=== PATIENT | female | born 1975 | race Two or more races ===

== ENCOUNTER 2021-01-12 06:10 | Emergency (ER) | payer SELFPAY ==
--- NOTE | 2021-01-12 06:35 | EDM.PDOC ---
ED HPI GENERAL MEDICAL PROBLEM - General Chief Complaint: General Stated Complaint: back pain Time Seen by Provider: 01/12/21 06:34 Source of Information: Reports: Patient, Family, Retail Team Member History Limitations: Reports: Language Barrier - History of Present Illness INITIAL COMMENTS - FREE TEXT/NARRATIVE: Jie, 45-year-old female, presents per pedis to the emergency department accompanied by her daughter who is also acting as sand plant attendant. Gives detail of 2+ weeks, Possibly up to 1 month of general malaise worsening with described as burning feet likely neuropathy from her poorly controlled diabetes. Daughter acknowledges diabetes is poorly controlled it is been at least 2 months since her last medical visit for checkup and/or renewal of prescriptions for her insulin therapy. Does not have glucose monitor but is using Lantus at night and NovoLog during the day with meals. Has received first dose moderna COVID-19 vaccine. back pain shoulder motion discomfort of the chest wall has been ongoing with increased severity over the past week in our translation. This seems to change with positioning. Denies shortness of breath, but pain does limit her inspiration. Bowel movements have been typical but has had increased urination and frequency not specifically speaking of any dysuria. Has issues with right wrist of chronicity has had a fracture and now is wearing the same splint/brace as it seems that it will flareup secondary of her work at [employer]. Onset: Unknown/Unsure Duration: Week(s):, Chronic, Getting Worse Location: Reports: Generalized Quality: Reports: Burning Severity: Moderate Improves with: Reports: None Worsens with: Reports: Movement Context: Reports: Sick Contact, Other Associated Symptoms: Reports: Malaise, Other ( Pain) Treatments SUPPORT ASSISTANT: Reports: Home Treatments, NSAIDS Feet Pain Score (Numeric/FACES): 9 Back Pain Score (Numeric/FACES): 9 - Related Data Allergies Allergy/AdvReac Type Severity Reaction Status Date / Time ampicillin Allergy Cannot Verified 01/12/21 08:28 Remember azithromycin [From Zithromax] Allergy Other Verified 01/12/21 06:28 Penicillins Allergy Other Verified 01/12/21 06:28 Home Meds: Home Meds Copper Gluconate [Copper] 2 mg PO DAILY 01/12/21 [History] Ibuprofen 200 mg PO Q6H PRN 01/12/21 [History] Insulin Glarg,Human.Rec.Analog [Lantus] 40 units SUBCUT BEDTIME 01/12/21 [History] Insulin Lispro [HumaLOG] 50 unit SUBCUT DAILY 01/12/21 [History] Magnesium 200 mg PO BID 01/12/21 [History] Naproxen Sodium [Aleve] 220 mg PO TID PRN 01/12/21 [History] Pregabalin [Lyrica] 50 mg PO TID 7 Days #21 cap 01/12/21 [Rx] Pregabalin [Lyrica] 100 mg PO TID 7 Days #21 cap 01/12/21 [Rx] lisinopriL [Lisinopril] 10 mg PO DAILY 01/12/21 [History] metFORMIN HCl [Metformin HCl ER] 500 mg PO DAILY 01/12/21 [History] Past Medical History HEENT History: Reports: Impaired Vision Cardiovascular History: Reports: None Respiratory History: Reports: None HEADER BOSS History: Reports: Musculoskeletal History: Reports: Arthritis, Osteoarthritis, Other (See Below) ( degenerative right knee) Neurological History: Reports: Neuropathy, Diabetic, Neuropathy, Peripheral Psychiatric History: Reports: None Endocrine/Metabolic History: Reports: Diabetes, Type II - Past Imaging History Past Imaging History: Reports: Xray Social & Family History - Family History Family Medical History: No Pertinent Family History ED ROS GENERAL - Review of Systems Review Of Systems: Comprehensive ROS is negative, except as noted in HPI. ED EXAM, GENERAL - Physical Exam Exam: See Below Free Text/Narrative:: Alert, oriented, in somewhat painful distress. HEENT is negative discharge or deformity with pink moist mucous membranes. PERRLA no icterus no injection is appreciated. Neck is soft supple no rigidity no lymphadenopathy normal limits to her motion. Thorax is somewhat diminished I would appreciate restriction secondary of her discomfort to the right posterior thorax and scapular region. I do not hear wheezes nor crackles. Cardiac is regular somewhat distant I do not appreciate murmur. Tenderness to the posterior thoracic and rib margin predominantly right side, increasing with palpation as well as motion of the right upper extremity. There is no flank pain to percussion. Abdomen is soft no point tenderness with bowel sounds present. There is no tenderness in the SI joints the hips nor pelvis. Right knee has chronic issues of which they state will need a total replacement in the future. She complains of burning to her feet with decreased sensation to touch from the ankles and distal. Socks are removed with somewhat dry skin to the soles of the feet with no lesions. Skin is warm and dry. Nails are painted gold with capillary refill for the skin being 3 seconds. #1 Interpretation EKG Date: 01/12/21 Time: 07:39 Rhythm: NSR Rate (Beats/Min): 77 [place]: Normal P-Wave: Present QRS: Normal ST-T: Normal QT: Normal Comparison: NA - No Prior EKG Course - Vital Signs Last Recorded V/S: Last Vital Signs Temp 97 F 01/12/21 06:21 Pulse 87 01/12/21 06:21 Resp 16 01/12/21 06:21 BP 111/80 01/12/21 06:21 Pulse Ox 98 01/12/21 06:21 - Orders/Labs/Meds Orders: Active Orders 24 hr Category Date Time Status Peripheral IV Care [RC] . DIRECTED Care 01/12/21 06:45 Active CULTURE BLOOD [BC] Stat Lab 01/12/21 06:45 Ordered CULTURE BLOOD [BC] Stat Lab 01/12/21 06:45 Ordered UA RFX RAHEEL AND CULT IF INDIC [URIN] Stat Lab 01/12/21 06:45 Results Sodium Chloride 0.9% [Normal Saline] 1,000 ml Med 01/12/21 07:00 Active IV ASDIRECTED Sodium Chloride 0.9% [Saline Flush] Med 01/12/21 06:45 Active 10 ml FLUSH Q8HR PRN Blood Culture x2 Reflex Set [OM.PC] Stat Oth 01/12/21 06:44 Ordered Peripheral IV Insertion Adult [OM.PC] Stat Oth 01/12/21 06:44 Ordered EKG 12 Lead [EK] Stat Ther 01/12/21 06:44 Ordered Medication Orders Sodium Chloride (Normal Saline) 1,000 mls @ 150 mls/hr IV ASDIRECTED WAQAS Last Admin: 01/12/21 07:27 Dose: 150 mls/hr Documented by: GABRIEL Sodium Chloride (Sodium Chloride 0.9% 10 Ml Syringe) 10 ml FLUSH Q8HR PRN PRN Reason: keep vein open Labs: Laboratory Tests 01/12/21 01/12/21 01/12/21 Range/Units 06:31 06:45 07:00 WBC 5.47 (5.00-10.00) 10^3/uL RBC 5.05 (3.80-5.50) 10^6/uL Hgb 14.3 (12.0-16.0) g/dL Hct 43.3 (37.0-47.0) % MCV 85.7 (82.0-92.0) fL MCH 28.3 (27.0-31.0) pg MCHC 33.0 (32.0-36.0) g/dL RDW 12.5 (11.5-14.5) % Plt Count 206 (150-400) 10^3/uL MPV 11.5 H (7.4-10.4) fL Immature Gran % (Auto) 1.3 (0.0-5.0) % Neut % (Auto) 49.1 L (50.0-70.0) % Lymph % (Auto) 39.1 (20.0-40.0) % [place] % (Auto) 6.2 (2.0-8.0) % Eos % (Auto) 3.8 H (1.0-3.0) % Baso % (Auto) 0.5 (0.0-1.0) % Neut # (Auto) 2.68 (2.50-7.00) 10^3/uL Lymph # (Auto) 2.14 (1.00-4.00) 10^3/uL [place] # (Auto) 0.34 (0.10-0.80) 10^3/uL Eos # (Auto) 0.21 (0.10-0.30) 10^3/uL Baso # (Auto) 0.03 (0.00-0.10) 10^3/uL Immature Gran # (Auto) 0.07 (0.00-0.50) 10^3/uL Sodium (136-145) mmol/L Potassium (3.5-5.1) mmol/L Chloride (98-107) mmol/L Carbon Dioxide (21.0-32.0) mmol/L Anion Gap (5-15) mmol/L BUN (7-18) mg/dL Creatinine (0.51-1.17) mg/dL Est Cr Clr Drug Dosing mL/min Estimated GFR (MDRD) mL/min Glucose (70-140) mg/dL POC Glucose 313 H (70-140) mg/dL Lactic Acid (0.4-2.0) mmol/L Calcium (8.7-10.3) mg/dL Total Bilirubin (0.2-1.0) mg/dL AST (15-37) U/L ALT (14-63) U/L Alkaline Phosphatase (46-116) U/L Troponin I High Sens (0-51.000) pg/mL Total Protein (6.4-8.2) g/dL Albumin (3.40-5.00) g/dL Urine Color Yellow (YELLOW) Urine Appearance Clear (CLEAR) Urine pH 5.5 (5.0-9.0) Ur Specific Bath 1.025 (1.005-1.030) Urine Protein Negative (NEGATIVE) mg/dL Urine Glucose (UA) 500 H (NEGATIVE) mg/dL Urine Ketones Negative (NEGATIVE) mg/dL Urine Occult Blood Negative (NEGATIVE) Urine Nitrite Negative (NEGATIVE) Urine Bilirubin Negative (NEGATIVE) Urine Urobilinogen 0.2 (0.2-1.0) E.U./dL Ur Leukocyte Esterase Negative (NEGATIVE) Influenza Type A RNA (NEGATIVE) Influenza Type B RNA (NEGATIVE) SARS-CoV-2 RNA (JAY) (NEGATIVE) 01/12/21 01/12/21 01/12/21 Range/Units 07:00 07:00 07:30 WBC (5.00-10.00) 10^3/uL RBC (3.80-5.50) 10^6/uL Hgb (12.0-16.0) g/dL Hct (37.0-47.0) % MCV (82.0-92.0) fL MCH (27.0-31.0) pg MCHC (32.0-36.0) g/dL RDW (11.5-14.5) % Plt Count (150-400) 10^3/uL MPV (7.4-10.4) fL Immature Gran % (Auto) (0.0-5.0) % Neut % (Auto) (50.0-70.0) % Lymph % (Auto) (20.0-40.0) % [place] % (Auto) (2.0-8.0) % Eos % (Auto) (1.0-3.0) % Baso % (Auto) (0.0-1.0) % Neut # (Auto) (2.50-7.00) 10^3/uL Lymph # (Auto) (1.00-4.00) 10^3/uL [place] # (Auto) (0.10-0.80) 10^3/uL Eos # (Auto) (0.10-0.30) 10^3/uL Baso # (Auto) (0.00-0.10) 10^3/uL Immature Gran # (Auto) (0.00-0.50) 10^3/uL Sodium 139 (136-145) mmol/L Potassium 4.2 (3.5-5.1) mmol/L Chloride 101 (98-107) mmol/L Carbon Dioxide 25.3 (21.0-32.0) mmol/L Anion Gap 16.9 H (5-15) mmol/L BUN 12 (7-18) mg/dL Creatinine 0.47 L (0.51-1.17) mg/dL Est Cr Clr Drug Dosing 130.53 mL/min Estimated GFR (MDRD) > 60 mL/min Glucose 323 H (70-140) mg/dL POC Glucose (70-140) mg/dL Lactic Acid 1.4 (0.4-2.0) mmol/L Calcium 8.4 L (8.7-10.3) mg/dL Total Bilirubin 0.7 (0.2-1.0) mg/dL AST 17 (15-37) U/L ALT 27 (14-63) U/L Alkaline Phosphatase 114 (46-116) U/L Troponin I High Sens < 4.000 (0-51.000) pg/mL Total Protein 6.7 (6.4-8.2) g/dL Albumin 3.16 L (3.40-5.00) g/dL Urine Color (YELLOW) Urine Appearance (CLEAR) Urine pH (5.0-9.0) Ur Specific Bath (1.005-1.030) Urine Protein (NEGATIVE) mg/dL Urine Glucose (UA) (NEGATIVE) mg/dL Urine Ketones (NEGATIVE) mg/dL Urine Occult Blood (NEGATIVE) Urine Nitrite (NEGATIVE) Urine Bilirubin (NEGATIVE) Urine Urobilinogen (0.2-1.0) E.U./dL Ur Leukocyte Esterase (NEGATIVE) Influenza Type A RNA Negative (NEGATIVE) Influenza Type B RNA Negative (NEGATIVE) SARS-CoV-2 RNA (JAY) Negative (NEGATIVE) Meds: Medications Generic Name Dose Route Start Last Admin Trade Name Crow PRN Reason Stop Dose Admin Sodium Chloride 1,000 mls @ 150 mls/hr 01/12/21 07:00 01/12/21 07:27 Normal Saline IV 150 mls/hr ASDIRECTED WAQAS Administration Sodium Chloride 10 ml 01/12/21 06:45 Sodium Chloride 0.9% 10 Ml Syringe FLUSH Q8HR PRN keep vein open Discontinued Medications Generic Name Dose Route Start Last Admin Trade Name Frejero PRN Reason Stop Dose Admin Sodium Chloride Confirm 01/12/21 07:07 01/12/21 07:27 Normal Saline Administered 01/12/21 07:08 Not Given Dose 1,000 mls @ as directed .ROUTE .STK-MED ONE Departure - Departure Time of Disposition: 08:55 Disposition: Home, Self-Care 01 Condition: Good Clinical Impression: Neuropathy, Insulin dependent diabetes mellitus with complications, Glucosuria, COVID-19 ruled out by laboratory testing, Influenza A virus not detected, Influenza B virus not detected Back pain Qualifiers: Back pain location: thoracic back pain Chronicity: chronic Back pain laterality: right Qualified Code(s): M54.6 - Pain in thoracic spine - Discharge Information *PRESCRIPTION DRUG MONITORING PROGRAM REVIEWED*: Not Applicable *COPY OF PRESCRIPTION DRUG MONITORING REPORT IN PATIENT ENE: Not Applicable Prescriptions: Pregabalin [Lyrica] 50 mg PO TID 7 Days #21 cap Pregabalin [Lyrica] 100 mg PO TID 7 Days #21 cap Instructions: Insulin Treatment for Diabetes Mellitus, Diabetes Mellitus and Foot Care, Peripheral Neuropathy, Blood Glucose Monitoring, Adult Forms: ED Department Discharge Additional Instructions: The only significant findings on your lab work today is elevated blood sugar as well as sugar in your urine. You need to maintain better control of your diabetes with blood glucose testing 4 times a day and adjusting your Humalog to keep your blood sugar closer to a 150 range. We will start pregabalin for your neuropathy but that will take time to show improvement of the burning sensation to your feet. We will start with 50 mg 3 times daily and you will need to be seen in the clinic for dosing adjustment in 1 week. Glucose monitor has been ordered with all testing supplies for 4 times a day testing You will need to establish with a clinic for your cares as you need stricter management of your diabetes to avoid further health complications. [facility] clinic is on the [address] in the [place] side of [facility], [facility] clinic is here at the West end of the hospital by the big parking lot. Make sure to establish an appointment for recheck next week. Sepsis Event Note (ED) - Evaluation Sepsis Screening Result: No Definite Risk - Focused Exam Vital Signs: Vital Signs Temp Pulse Resp BP Pulse Ox 01/12/21 06:21 97 F 87 16 111/80 98 - Problem List & Annotations (1) Insulin dependent diabetes mellitus with complications SNOMED Code(s): 14925229, 14621266 Code(s): DWW5138 - Status: Acute Priority: High (2) Back pain SNOMED Code(s): 734254965 Code(s): M54.9 - DORSALGIA, UNSPECIFIED Status: Acute Priority: High Qualifiers: Back pain location: thoracic back pain Chronicity: chronic Back pain laterality: right Qualified Code(s): M54.6 - Pain in thoracic spine; G89.29 - Other chronic pain (3) Neuropathy SNOMED Code(s): 389052677 Code(s): G62.9 - POLYNEUROPATHY, UNSPECIFIED Status: Acute Priority: Medium (4) Glucosuria SNOMED Code(s): 71902188 Code(s): R81 - GLYCOSURIA Status: Acute (5) COVID-19 ruled out by laboratory testing SNOMED Code(s): 226289482516707778, 560026476929176990 Code(s): Z20.822 - CONTACT WITH AND (SUSPECTED) EXPOSURE TO COVID-19 Status: Acute Priority: High (6) Influenza B virus not detected SNOMED Code(s): 174545430 Code(s): LXB0707 - Status: Acute Priority: High (7) Influenza A virus not detected SNOMED Code(s): 637093927 Code(s): R89.4 - ABNORMAL IMMUNOLOG FINDINGS IN SPECIMENS FROM OTH ORG/TISS Status: Acute Priority: High - Problem List Review Problem List Initiated/Reviewed/Updated: Yes - My Orders Last 24 Hours: My Active Orders 01/12/21 06:44 Blood Culture x2 Reflex Set [OM.PC] Stat Peripheral IV Insertion Adult [OM.PC] Stat EKG 12 Lead [EK] Stat 01/12/21 06:45 Peripheral IV Care [RC] . DIRECTED CULTURE BLOOD [BC] Stat CULTURE BLOOD [BC] Stat UA RFX RAHEEL AND CULT IF INDIC [URIN] Stat Sodium Chloride 0.9% [Saline Flush] 10 ml FLUSH Q8HR PRN 01/12/21 07:00 Sodium Chloride 0.9% [Normal Saline] 1,000 ml IV ASDIRECTED - Assessment/Plan Last 24 Hours: My Active Orders 01/12/21 06:44 Blood Culture x2 Reflex Set [OM.PC] Stat Peripheral IV Insertion Adult [OM.PC] Stat EKG 12 Lead [EK] Stat 01/12/21 06:45 Peripheral IV Care [RC] . DIRECTED CULTURE BLOOD [BC] Stat CULTURE BLOOD [BC] Stat UA RFX RAHEEL AND CULT IF INDIC [URIN] Stat Sodium Chloride 0.9% [Saline Flush] 10 ml FLUSH Q8HR PRN 01/12/21 07:00 Sodium Chloride 0.9% [Normal Saline] 1,000 ml IV ASDIRECTED Plan: The only significant findings on your lab work today is elevated blood sugar as well as sugar in your urine. You need to maintain better control of your diabetes with blood glucose testing 4 times a day and adjusting your Humalog to keep your blood sugar closer to a 150 range. We will start pregabalin for your neuropathy but that will take time to show improvement of the burning sensation to your feet. We will start with 50 mg 3 times daily and you will need to be seen in the clinic for dosing adjustment in 1 week. Glucose monitor has been ordered with all testing supplies for 4 times a day testing. You will need to establish with a clinic for your cares as you need stricter management of your diabetes to avoid further health complications. [facility] clinic is on the [address] [place] [address] in the [place] side of [facility], [facility] clinic is here at the West end of the hospital by the big parking lot. Make sure to establish an appointment for recheck next week.
[2021-01-12] MEDS ORDERED: Sodium Chloride 0.9% 10 ML Syringe FLUSH PRN (06:45)
[2021-01-12] MEDS ORDERED: Sodium Chloride 0.9% 1,000 ML IV SCH (07:00)
[2021-01-12] MEDS ORDERED: Sodium Chloride 0.9% 1,000 ML ONE (07:07)
[2021-01-12 07:46] LABS: ANION GAP 16.9 mmol/L (5-15); CHLORIDE,CL 101 mmol/L (98-107); SODIUM,NA 139 mmol/L (136-145)
--- NOTE | 2021-01-12 08:09 | CR ---
[id number] RAD/RAD Chest PA And Lateral EXAM: RAD Chest PA And Lateral INDICATION: POOR CONTROL DM WITH BACK/CHEST PAIN, NEUROPATHY, COMPARISON: April 17, 2012. DISCUSSION: Lungs are mildly hypoinflated with basilar atelectasis. Borderline heart size without evidence of edema. No effusions. IMPRESSION: 1. Low lung volumes. Danilo Marin MD 01/12/21 0809 Thank you for allowing us to participate in the care of your patient.
[2021-01-12 08:13] LABS: CORONAVIRUS COVID-19 NAA NEGATIVE (NEGATIVE)
== END 2021-01-12 09:30 | disposition home or self-care (01) ==
LOC: KA.ED 06:10
DX: G89.29 Other chronic pain (principal); M54.6 Pain in thoracic spine; E11.42 Type 2 diabetes mellitus with diabetic polyneuropathy; R81 Glycosuria; M19.90 Unspecified osteoarthritis, unspecified site; Z88.0 Allergy status to penicillin; Z88.1 Allergy status to other antibiotic agents; Z79.4 Long term (current) use of insulin; Z79.899 Other long term (current) drug therapy; Z20.822 Contact with and (suspected) exposure to COVID-19
CPT/HCPCS: 0240U; 36415; 71046; 80053; 81003; 82947; 83605; 84484; 85025; 99284-25; J7030

== ENCOUNTER 2021-02-24 16:00 | Observation (INO) | payer MEDICAID ==
[2021-02-24] MEDS ORDERED: Sodium Chloride 0.9% 10 ML Syringe FLUSH PRN (16:25)
[2021-02-24] MEDS ORDERED: Aspirin 81 MG Tab.Chew ONE (16:36)
[2021-02-24] MEDS ORDERED: Aspirin 81 MG Tab.Chew PO ONE (16:38)
[2021-02-24] MEDS ORDERED: Nitroglycerin 0.1 MG/HR Transdermal Patch TRDERM ONE (16:38)
[2021-02-24] MEDS ORDERED: Nitroglycerin 2% Oint 1 GM UD Packet ONE (16:39)
[2021-02-24 16:50] LABS: ANION GAP 15.6 mmol/L (5-15); CHLORIDE,CL 96 mmol/L (98-107); SODIUM,NA 133 mmol/L (136-145)
[2021-02-24] MEDS ORDERED: Sodium Chloride 0.9% 1,000 ML IV ONE (17:05)
[2021-02-24] MEDS ORDERED: Insulin Regular, Human 100 Units/ML 10 ML Vial SUBCUT ONE ×2 (17:15→19:28)
[2021-02-24] MEDS ORDERED: Ketorolac 30 MG/ML SDV IVPUSH ONE (17:20)
[2021-02-24] MEDS ORDERED: Alum Hydrox/Mag Hydrox/Simeth 30 ML, Lidocaine 2% 15 ML PO ONE ×4 (17:52→21:54)
[2021-02-24] MEDS ORDERED: Pantoprazole 40 MG Tab.CR PO ONE (18:05)
[2021-02-24] MEDS ORDERED: LORazepam 2 MG/ML SDV IVPUSH ONE (18:13)
[2021-02-24] MEDS ORDERED: Ondansetron 4 MG/2 ML SDV IVPUSH ONE (18:14)
[2021-02-24] MEDS ORDERED: Insulin Glargine,Hum.Rec.Anlog 100 UNIT/ML 3 ML Pen SUBCUT STA (18:20)
[2021-02-24] MEDS: Sodium Chloride 0.9% 1,000 ML IV SCH (18:40)
[2021-02-24] MEDS ORDERED: Albuterol 8 GM Inhaler INH PRN (20:21)
[2021-02-24] MEDS ORDERED: Non-Formulary Medication 1 Each (Insulin Aspart 100 UNIT/ML Pen) SUBCUT SCH (21:00)
[2021-02-24] MEDS ORDERED: atorvaSTATin 10 MG Tab PO SCH (21:00)
[2021-02-24] MEDS ORDERED: 50% Dextrose in Water 50 ML Syringe IVPUSH PRN (21:50)
[2021-02-24] MEDS ORDERED: Glucagon,Human Recombinant 1 MG Vial IM PRN (21:50)
[2021-02-24] MEDS: Formoterol/Mometasone 100-5 MCG 8.8 GM Inhaler IH SCH (22:00)
[2021-02-24] MEDS: Acetaminophen 325 MG Tab PO PRN (22:00)
[2021-02-25] MEDS: Sodium Chloride 0.9% 1,000 ML IV SCH ×3 (02:26→22:07)
[2021-02-25] MEDS: Acetaminophen 325 MG Tab PO PRN ×2 (06:29→20:33)
[2021-02-25] MEDS: Aluminum Hydroxide/Magnesium Hydroxide/Simethicone Susp 30 ML Cup PO PRN ×2 (06:40→20:33)
[2021-02-25 07:54] LABS: ANION GAP 12.7 mmol/L (5-15); CHLORIDE,CL 101 mmol/L (98-107); SODIUM,NA 134 mmol/L (136-145)
[2021-02-25] MEDS ORDERED: metFORMIN 500 MG Tab PO SCH (08:00)
[2021-02-25] MEDS: Formoterol/Mometasone 100-5 MCG 8.8 GM Inhaler IH SCH ×2 (08:24→20:27)
[2021-02-25] MEDS: Gemfibrozil 600 MG Tab PO SCH ×2 (08:56→18:04)
[2021-02-25] MEDS: Insulin Lispro 100 Unit/ML 3 ML KwikPen SUBCUT SCH ×3 (08:57→18:07)
[2021-02-25] MEDS ORDERED: Lisinopril 5 MG Tab PO SCH (09:00)
[2021-02-25] MEDS ORDERED: Ondansetron 4 MG/2 ML SDV IVPUSH PRN (09:30)
[2021-02-25] MEDS: Pantoprazole 40 MG Tab.CR PO SCH (09:41)
[2021-02-25] MEDS ORDERED: PROAIR INH PRN (13:14)
[2021-02-25] MEDS: JARDIANCE 25 MG PO SCH (14:34)
[2021-02-25] MEDS: ATORVASTATIN 20 MG PO SCH (20:28)
[2021-02-25] MEDS ORDERED: Insulin Glargine,Hum.Rec.Anlog 100 UNIT/ML 3 ML Pen SUBCUT SCH (21:00)
[2021-02-26] MEDS: Gemfibrozil 600 MG Tab PO SCH ×2 (05:55→06:33)
[2021-02-26] MEDS: Pantoprazole 40 MG Tab.CR PO SCH ×2 (05:55→06:33)
[2021-02-26] MEDS: Formoterol/Mometasone 100-5 MCG 8.8 GM Inhaler IH SCH (08:10)
[2021-02-26] MEDS: Insulin Lispro 100 Unit/ML 3 ML KwikPen SUBCUT SCH (08:10)
[2021-02-26] MEDS: JARDIANCE 25 MG PO SCH (08:12)
[2021-02-26] MEDS: ATORVASTATIN 20 MG PO SCH (08:12)
[2021-02-26] MEDS ORDERED: LISINOPRIL 5 MG PO SCH (09:00)
== END 2021-02-26 09:53 | disposition home or self-care (01) ==
LOC: KA.ED 16:00 → KA.MS 17:21 → UNDOADMOB 17:35 → KA.MS 17:35
PROVIDERS: ADMIT Family Medicine; ATTEND Family Medicine
DX: R07.9 Chest pain, unspecified (principal); I10 Essential (primary) hypertension; E78.00 Pure hypercholesterolemia, unspecified; E11.42 Type 2 diabetes mellitus with diabetic polyneuropathy; J45.909 Unspecified asthma, uncomplicated; R10.9 Unspecified abdominal pain; Z98.890 Other specified postprocedural states; Z79.4 Long term (current) use of insulin; Z79.84 Long term (current) use of oral hypoglycemic drugs; Z79.899 Other long term (current) drug therapy; Z90.49 Acquired absence of other specified parts of digestive tract; Z20.822 Contact with and (suspected) exposure to COVID-19
CPT/HCPCS: 36415; 71046; 80048; 80053; 82947; 83690; 84484; 85025; 87635; 93005; 96374; 96375; 96376; 99285; A9270; G0378; J1815; J1885; J2060; J2405; J7030; 93010; 99284; U0002

== ENCOUNTER 2021-03-18 16:45 | Emergency (ER) | payer MEDICAID ==
[2021-03-18] MEDS: Sodium Chloride 0.9% 1,000 ML IV ONE (17:29)
[2021-03-18] MEDS: Sodium Chloride 0.9% 50 ML IV SCH (17:37)
[2021-03-18] MEDS: Iopamidol 755 Mg/ML 75 ML Bottle IVPUSH ONE (17:37)
[2021-03-18 17:50] LABS: CHLORIDE,CL 97 mmol/L (98-107); SODIUM,NA 133 mmol/L (136-145)
[2021-03-18] MEDS ORDERED: Lidocaine 2% Viscous Solution 15 ML UD ONE (18:11)
[2021-03-18] MEDS: Alum Hydrox/Mag Hydrox/Simeth 30 ML, Lidocaine 2% 15 ML PO ONE ×2 (18:15)
[2021-03-18] MEDS: HYDROmorphone 1 MG/ML Syringe IVPUSH ONE (18:16)
[2021-03-18] MEDS ORDERED: hydrOXYzine HCL 100 MG/2 ML SDV IM ONE (18:32)
== END 2021-03-18 19:54 | disposition home or self-care (01) ==
LOC: KA.ED 16:45
DX: R07.89 Other chest pain (principal); M47.812 Spondylosis without myelopathy or radiculopathy, cervical region; K21.9 Gastro-esophageal reflux disease without esophagitis; E78.00 Pure hypercholesterolemia, unspecified; I10 Essential (primary) hypertension; J45.909 Unspecified asthma, uncomplicated; E11.42 Type 2 diabetes mellitus with diabetic polyneuropathy; Z88.0 Allergy status to penicillin; Z88.1 Allergy status to other antibiotic agents; Z79.4 Long term (current) use of insulin; Z79.899 Other long term (current) drug therapy
CPT/HCPCS: 36415; 71260; 72040; 74177; 80053; 82150; 83690; 84484; 85025; 93005; 93010; 96374; 99284; 99285-25; A9270-GY; J1170; J7030; Q9967

== ENCOUNTER 2021-05-29 14:33 | Emergency (ER) | payer MEDICAID ==
[2021-05-29] MEDS ORDERED: Sodium Chloride 0.9% 10 ML Syringe FLUSH PRN (14:37)
[2021-05-29] MEDS ORDERED: Sodium Chloride 0.9% 1,000 ML IV ONE (14:38)
[2021-05-29] MEDS ORDERED: Aspirin 81 MG Tab.Chew PO ONE (14:43)
[2021-05-29] MEDS ORDERED: LORazepam 2 MG/ML SDV IVPUSH ONE (14:51)
[2021-05-29] MEDS ORDERED: Ondansetron 4 MG/2 ML SDV IVPUSH ONE (15:08)
[2021-05-29] MEDS ORDERED: Morphine 4 MG/ML Syringe IVPUSH ONE (15:08)
[2021-05-29 15:14] LABS: ANION GAP 12.6 mmol/L (5-15); CHLORIDE,CL 100 mmol/L (98-107); SODIUM,NA 133 mmol/L (136-145)
== END 2021-05-29 16:10 | disposition left against medical advice (07) ==
LOC: KA.ED 14:33 → UNDOADMOB 15:41 → KA.MS 15:41 → UNDODISOB 16:00
DX: R07.89 Other chest pain (principal); E78.00 Pure hypercholesterolemia, unspecified; I10 Essential (primary) hypertension; M19.90 Unspecified osteoarthritis, unspecified site; E11.42 Type 2 diabetes mellitus with diabetic polyneuropathy; Z88.0 Allergy status to penicillin; Z88.1 Allergy status to other antibiotic agents; Z79.4 Long term (current) use of insulin; Z79.899 Other long term (current) drug therapy; Z20.822 Contact with and (suspected) exposure to COVID-19
CPT/HCPCS: 36415; 71045; 80053; 82947; 83880; 84484; 85025; 85379; 96374; 96375; 99285-25; A9270-GY; J2060; J2270; J2405; J7030; U0002

== ENCOUNTER 2021-06-30 08:49 | Day surgery (SDC) | payer MEDICAID ==
[2021-06-30] MEDS ORDERED: Midazolam 1 MG/ML 2 ML SDV IV ONE (08:50)
[2021-06-30] MEDS ORDERED: Sodium Chloride 0.9% 10 ML Syringe FLUSH PRN (09:00)
[2021-06-30] MEDS ORDERED: Sodium Chloride 0.9% 1,000 ML IV SCH (09:00)
[2021-06-30] MEDS ORDERED: Glycopyrrolate 0.2 MG/ML SDV ONE (09:02)
[2021-06-30] MEDS ORDERED: Midazolam 1 MG/ML 2 ML SDV ONE ×2 (09:02→09:04)
[2021-06-30] MEDS ORDERED: Lidocaine 2% 20 ML MDV ONE (09:02)
[2021-06-30] MEDS ORDERED: Propofol 200 MG/20 ML SDV ONE (09:02)
== END 2021-06-30 12:25 | disposition home or self-care (01) ==
LOC: KA.SDS 08:49
PROVIDERS: ATTEND Family Medicine
DX: Z12.11 Encounter for screening for malignant neoplasm of colon (principal); K31.89 Other diseases of stomach and duodenum; K21.9 Gastro-esophageal reflux disease without esophagitis; K31.7 Polyp of stomach and duodenum; K29.70 Gastritis, unspecified, without bleeding; K31.819 Angiodysplasia of stomach and duodenum without bleeding; E11.65 Type 2 diabetes mellitus with hyperglycemia; I10 Essential (primary) hypertension; E78.2 Mixed hyperlipidemia; E55.9 Vitamin D deficiency, unspecified; E66.9 Obesity, unspecified; Z79.4 Long term (current) use of insulin; Z79.899 Other long term (current) drug therapy; Z88.0 Allergy status to penicillin; Z88.1 Allergy status to other antibiotic agents; Z68.31 Body mass index [BMI] 31.0-31.9, adult
CPT/HCPCS: 00813; 43239; 45378; 82947; J2250; J2704; J3490; J7030

== ENCOUNTER 2021-09-20 07:07 | Day surgery (SDC) | payer MEDICAID ==
[~2021-09-20 07:07] MED LIST: Sodium Chloride 0.9% 1,000 ML IV SCH; Sodium Chloride 0.9% 10 ML Syringe FLUSH PRN
== END 2021-09-20 08:00 | disposition home or self-care (01) ==
LOC: KA.SDS 07:07
PROVIDERS: ATTEND Family Medicine
DX: R19.5 Other fecal abnormalities (principal); Z53.09 Procedure and treatment not carried out because of other contraindication; E11.9 Type 2 diabetes mellitus without complications; Z59.41 Food insecurity; Z20.822 Contact with and (suspected) exposure to COVID-19; Z88.0 Allergy status to penicillin; Z88.1 Allergy status to other antibiotic agents; Z98.890 Other specified postprocedural states; Z79.899 Other long term (current) drug therapy
CPT/HCPCS: 82947; J7030

== ENCOUNTER 2021-12-05 06:36 | Emergency (ER) | payer MEDICAID ==
[2021-12-05] MEDS ORDERED: Ketorolac 30 MG/ML SDV IVPUSH ONE (07:25)
[2021-12-05] MEDS ORDERED: HYDROmorphone 1 MG/ML Syringe IVPUSH ONE (07:25)
[2021-12-05 08:37] LABS: ANION GAP 12.5 mmol/L (5-15); CHLORIDE,CL 98 mmol/L (98-107); ESTIMATED GFR 121 mL/min (>=60); SODIUM,NA 132 mmol/L (136-145)
[2021-12-05] MEDS ORDERED: Insulin Lispro 100 Unit/ML 3 ML KwikPen SUBCUT ONE (09:05)
[2021-12-05] MEDS ORDERED: Iopamidol 755 Mg/ML 75 ML Bottle IVPUSH ONE (09:47)
[2021-12-05] MEDS ORDERED: Sodium Chloride 0.9% 50 ML IV SCH (10:00)
[2021-12-05] MEDS ORDERED: traMADol 50 MG Tab PO ONE (10:43)
== END 2021-12-05 11:08 | disposition home or self-care (01) ==
LOC: KA.ED 06:36
DX: R07.89 Other chest pain (principal); E10.41 Type 1 diabetes mellitus with diabetic mononeuropathy; E10.65 Type 1 diabetes mellitus with hyperglycemia; E10.42 Type 1 diabetes mellitus with diabetic polyneuropathy; E78.00 Pure hypercholesterolemia, unspecified; I10 Essential (primary) hypertension; J45.909 Unspecified asthma, uncomplicated; M19.90 Unspecified osteoarthritis, unspecified site; Z88.1 Allergy status to other antibiotic agents; Z88.0 Allergy status to penicillin; Z79.899 Other long term (current) drug therapy
CPT/HCPCS: 36415; 71260; 74160; 80053; 82947; 83690; 84484; 85025; 86140; 96374; 96375; 99284; 99284-25; A9270-GY; J1170; J1815-GY; J1885; Q9967

== ENCOUNTER 2022-03-03 16:50 | Emergency (ER) | payer MEDICAID ==
[2022-03-03] MEDS: HYDROmorphone 1 MG/ML Syringe IVPUSH ONE (17:25)
[2022-03-03] MEDS: Sodium Chloride 0.9% 50 ML IV SCH (17:48)
[2022-03-03] MEDS: Iopamidol 755 Mg/ML 75 ML Bottle IVPUSH ONE (17:48)
[2022-03-03] MEDS: Ondansetron 4 MG/2 ML SDV ONE (17:53)
[2022-03-03] MEDS: Ondansetron 4 MG/2 ML SDV IVPUSH ONE (17:53)
[2022-03-03 17:55] LABS: ANION GAP 13.6 mmol/L (5-15)
== END 2022-03-03 18:40 | disposition home or self-care (01) ==
LOC: KA.ED 16:50
DX: E11.43 Type 2 diabetes mellitus with diabetic autonomic (poly)neuropathy (principal); K31.84 Gastroparesis; K31.89 Other diseases of stomach and duodenum; E80.7 Disorder of bilirubin metabolism, unspecified; R74.8 Abnormal levels of other serum enzymes; E78.00 Pure hypercholesterolemia, unspecified; I10 Essential (primary) hypertension; K21.9 Gastro-esophageal reflux disease without esophagitis; E11.9 Type 2 diabetes mellitus without complications; E66.9 Obesity, unspecified; Z68.34 Body mass index [BMI] 34.0-34.9, adult; Z88.0 Allergy status to penicillin; Z88.1 Allergy status to other antibiotic agents; Z79.4 Long term (current) use of insulin; Z79.899 Other long term (current) drug therapy
CPT/HCPCS: 36415; 71046; 74177; 80053; 81003; 82150; 83605; 83690; 85025; 87040; 96374; 96375; 99284; 99284-25; J1170; J2405; Q9967

== ENCOUNTER 2022-10-08 14:39 | Emergency (ER) | payer MEDICAID ==
[2022-10-08] MEDS ORDERED: Sodium Chloride 0.9% 1,000 ML IV ONE (15:07)
[2022-10-08] MEDS ORDERED: Iopamidol 755 Mg/ML 100 ML Bottle IV ONE (15:19)
[2022-10-08] MEDS ORDERED: LORazepam 2 MG/ML SDV IVPUSH ONE (15:26)
[2022-10-08] MEDS ORDERED: Ondansetron 4 MG/2 ML SDV IVPUSH ONE (15:26)
[2022-10-08 15:28] LABS: BASOPHILS ABSOLUTE AUTO 0.03 10^3/uL (0.00-0.10); BASOPHILS PERCENT AUTO 0.4 % (0.0-1.0); EOSINOPHILS ABSOLUTE AUTO 0.24 10^3/uL (0.10-0.30); EOSINOPHILS PERCENT AUTO 3.3 % (1.0-3.0); HEMATOCRIT 39.5 % (37.0-47.0); HEMOGLOBIN 13.6 g/dL (12.0-16.0); IMMATURE GRAN ABSOLUTE AUTO 0.03 10^3/uL (0.00-0.50); IMMATURE GRAN PERCENT AUTO 0.4 % (0.0-5.0); LYMPHOCYTES ABSOLUTE AUTO 1.88 10^3/uL (1.00-4.00); LYMPHOCYTES PERCENT AUTO 26.2 % (20.0-40.0); MEAN CORPUSCULAR HEMOGLOBIN 28.5 pg (27.0-31.0); MEAN CORPUSCULAR HGB CONC 34.4 g/dL (32.0-36.0); MEAN CORPUSCULAR VOLUME 82.8 fL (82.0-92.0); MONOCYTES ABSOLUTE AUTO 0.28 10^3/uL (0.10-0.80); MONOCYTES PERCENT AUTO 3.9 % (2.0-8.0); NEUTROPHILS ABSOLUTE AUTO 4.71 10^3/uL (2.50-7.00); NEUTROPHILS PERCENT AUTO 65.8 % (50.0-70.0); PLATELET COUNT,PLT 251 10^3/uL (150-400); RED BLOOD CELL COUNT 4.77 10^6/uL (3.80-5.50); RED CELL DISTRIBUTION WIDTH 12.9 % (11.5-14.5); WHITE BLOOD CELL COUNT,WBC 7.17 10^3/uL (5.00-10.00)
[2022-10-08] MEDS ORDERED: Sodium Chloride 0.9% 50 ML IV SCH (15:30)
[2022-10-08 15:44] LABS: ALANINE AMINOTRANSFERASE,ALT 39 U/L (14-63); ALBUMIN 3.48 g/dL (3.40-5.00); ALKALINE PHOSPHATASE 136 U/L (46-116); ANION GAP 14.4 mmol/L (5-15); ASPARTATE AMNIOTRANSFERASE,AST 17 U/L (15-37); BILIRUBIN TOTAL 1.2 mg/dL (0.2-1.0); BLOOD UREA NITROGEN,BUN 11 mg/dL (7-18); CALCIUM 8.8 mg/dL (8.7-10.3); CARBON DIOXIDE,CO2 26.5 mmol/L (21.0-32.0); CHLORIDE,CL 101 mmol/L (98-107); CREATININE 0.56 mg/dL (0.51-1.17); GLUCOSE RANDOM 344 mg/dL (70-140); LIPASE 38 U/L (73-393); POTASSIUM,K 3.9 mmol/L (3.5-5.1); PROTEIN TOTAL,TP 7.4 g/dL (6.4-8.2); SODIUM,NA 138 mmol/L (136-145)
[2022-10-08 15:45] LABS: ESTIMATED GFR 114 mL/min (>=60)
[2022-10-08] MEDS ORDERED: Metoclopramide 10 MG Tab PO ONE (16:59)
== END 2022-10-08 17:40 | disposition home or self-care (01) ==
LOC: KA.ED 14:39
DX: E13.43 Other specified diabetes mellitus with diabetic autonomic (poly)neuropathy (principal); K31.84 Gastroparesis; E13.65 Other specified diabetes mellitus with hyperglycemia; E78.00 Pure hypercholesterolemia, unspecified; I10 Essential (primary) hypertension; K21.9 Gastro-esophageal reflux disease without esophagitis; J45.909 Unspecified asthma, uncomplicated; E13.42 Other specified diabetes mellitus with diabetic polyneuropathy; E66.9 Obesity, unspecified; Z68.30 Body mass index [BMI] 30.0-30.9, adult; Z88.0 Allergy status to penicillin; Z88.1 Allergy status to other antibiotic agents; Z79.4 Long term (current) use of insulin; Z79.899 Other long term (current) drug therapy
CPT/HCPCS: 74177; 80053; 83690; 85025; 93010; 96361; 96374; 96375; 99284; A9270; J2060; J2405; J3490; J7030; Q9967

== ENCOUNTER 2023-06-07 17:45 | Emergency (ER) | payer MEDICAID ==
[2023-06-07] MEDS: LORazepam 0.5 MG Tab PO ONE (17:57)
[2023-06-07] MEDS ORDERED: Sodium Chloride 0.9% 10 ML Syringe FLUSH PRN (18:00)
[2023-06-07 18:20] LABS: BASOPHILS ABSOLUTE AUTO 0.04 10^3/uL (0.00-0.10); BASOPHILS PERCENT AUTO 0.5 % (0.0-1.0); EOSINOPHILS ABSOLUTE AUTO 0.12 10^3/uL (0.10-0.30); EOSINOPHILS PERCENT AUTO 1.5 % (1.0-3.0); HEMOGLOBIN 13.2 g/dL (12.0-16.0); IMMATURE GRAN ABSOLUTE AUTO 0.05 10^3/uL (0.00-0.50); IMMATURE GRAN PERCENT AUTO 0.6 % (0.0-5.0); LYMPHOCYTES ABSOLUTE AUTO 2.01 10^3/uL (1.00-4.00); LYMPHOCYTES PERCENT AUTO 25.7 % (20.0-40.0); MEAN CORPUSCULAR HEMOGLOBIN 28.7 pg (27.0-31.0); MEAN CORPUSCULAR HGB CONC 34.7 g/dL (32.0-36.0); MEAN CORPUSCULAR VOLUME 82.6 fL (82.0-92.0); MEAN PLATELET VOLUME 10.7 fL (7.4-10.4); MONOCYTES ABSOLUTE AUTO 0.47 10^3/uL (0.10-0.80); NEUTROPHILS ABSOLUTE AUTO 5.12 10^3/uL (2.50-7.00); NEUTROPHILS PERCENT AUTO 65.7 % (50.0-70.0); PLATELET COUNT,PLT 232 10^3/uL (150-400); RED CELL DISTRIBUTION WIDTH 12.8 % (11.5-14.5); WHITE BLOOD CELL COUNT,WBC 7.81 10^3/uL (5.00-10.00)
[2023-06-07 18:36] LABS: ALBUMIN 3.12 g/dL (3.40-5.00); ANION GAP 12.9 mmol/L (5-15); BILIRUBIN TOTAL 0.6 mg/dL (0.2-1.0); CALCIUM 8.7 mg/dL (8.7-10.3); CARBON DIOXIDE,CO2 27.7 mmol/L (21.0-32.0); CREATININE 0.54 mg/dL (0.51-1.17); EST CRCL DRUG DOSING (CG) 106.54 mL/min; POTASSIUM,K 3.6 mmol/L (3.5-5.1)
== END 2023-06-07 20:35 | disposition home or self-care (01) ==
LOC: KA.ED 17:45
DX: M79.602 Pain in left arm (principal); E11.65 Type 2 diabetes mellitus with hyperglycemia; F41.9 Anxiety disorder, unspecified; M54.2 Cervicalgia; R07.9 Chest pain, unspecified; I10 Essential (primary) hypertension; R74.8 Abnormal levels of other serum enzymes; J45.909 Unspecified asthma, uncomplicated; Z79.4 Long term (current) use of insulin; Z79.899 Other long term (current) drug therapy; Z79.51 Long term (current) use of inhaled steroids; Z88.0 Allergy status to penicillin; Z88.1 Allergy status to other antibiotic agents
CPT/HCPCS: 36415; 71045; 80053; 83880; 84484; 85025; 99285; A9270; 93010; 99284

== ENCOUNTER 2024-03-29 09:43 | Emergency (ER) | payer SELFPAY ==
[2024-03-29] MEDS ORDERED: Sodium Chloride 0.9% 10 ML Syringe FLUSH PRN (09:57)
[2024-03-29 10:18] LABS: BASOPHILS ABSOLUTE AUTO 0.02 10^3/uL (0.00-0.10); BASOPHILS PERCENT AUTO 0.3 % (0.0-1.0); EOSINOPHILS ABSOLUTE AUTO 0.17 10^3/uL (0.10-0.30); EOSINOPHILS PERCENT AUTO 2.7 % (1.0-3.0); HEMATOCRIT 41.9 % (37.0-47.0); HEMOGLOBIN 14.6 g/dL (12.0-16.0); IMMATURE GRAN ABSOLUTE AUTO 0.07 10^3/uL (0.00-0.04); IMMATURE GRAN PERCENT AUTO 1.1 % (0.0-0.4); LYMPHOCYTES ABSOLUTE AUTO 1.85 10^3/uL (1.00-4.00); LYMPHOCYTES PERCENT AUTO 29.1 % (20.0-40.0); MEAN CORPUSCULAR HEMOGLOBIN 28.2 pg (27.0-31.0); MEAN CORPUSCULAR HGB CONC 34.8 g/dL (32.0-36.0); MEAN PLATELET VOLUME 11.3 fL (7.4-10.4); MONOCYTES PERCENT AUTO 6.3 % (2.0-8.0); NEUTROPHILS ABSOLUTE AUTO 3.85 10^3/uL (2.50-7.00); NEUTROPHILS PERCENT AUTO 60.5 % (50.0-70.0); PLATELET COUNT,PLT 188 10^3/uL (150-400); RED BLOOD CELL COUNT 5.17 10^6/uL (3.80-5.50); WHITE BLOOD CELL COUNT,WBC 6.36 10^3/uL (5.00-10.00)
[2024-03-29 10:23] LABS: PH VENOUS,POC 7.47 pH (7.32-7.43)
[2024-03-29] MEDS: Sodium Chloride 0.9% 1,000 ML IV ONE (10:23)
[2024-03-29] MEDS: LORazepam 2 MG/ML SDV IVPUSH ONE (10:29)
[2024-03-29 10:30] LABS: ALANINE AMINOTRANSFERASE,ALT 29 U/L (14-63); ALBUMIN 3.39 g/dL (3.40-5.00); ALKALINE PHOSPHATASE 139 U/L (46-116); ANION GAP 16.7 mmol/L (5-15); ASPARTATE AMNIOTRANSFERASE,AST 10 U/L (15-37); BILIRUBIN TOTAL 1.1 mg/dL (0.2-1.0); BLOOD UREA NITROGEN,BUN 15 mg/dL (7-18); CALCIUM 9.4 mg/dL (8.7-10.3); CARBON DIOXIDE,CO2 25.7 mmol/L (21.0-32.0); CHLORIDE,CL 96 mmol/L (98-107); CREATININE 0.52 mg/dL (0.51-1.17); GLUCOSE RANDOM 392 mg/dL (70-140); POTASSIUM,K 4.4 mmol/L (3.5-5.1); PROTEIN TOTAL,TP 7.2 g/dL (6.4-8.2); SODIUM,NA 134 mmol/L (136-145)
[2024-03-29 10:31] LABS: ESTIMATED GFR 115 mL/min (>=60)
[2024-03-29] MEDS: Ketorolac 30 MG/ML SDV IVPUSH ONE (10:49)
[2024-03-29] MEDS ORDERED: 50% Dextrose in Water 50 ML Syringe IVPUSH PRN (11:19)
[2024-03-29] MEDS ORDERED: Glucagon,Human Recombinant 1 MG Vial IM PRN (11:19)
[2024-03-29] MEDS: Insulin Regular, Human 100 Units/ML 10 ML Vial SUBCUT ONE (11:32)
[2024-03-29 13:34] VITALS: BP 139/79; PULSE 77
== END 2024-03-29 12:05 | disposition home or self-care (01) ==
LOC: KA.ED 09:43
DX: E11.65 Type 2 diabetes mellitus with hyperglycemia (principal); R07.89 Other chest pain; M54.2 Cervicalgia; I10 Essential (primary) hypertension; E78.00 Pure hypercholesterolemia, unspecified; E11.9 Type 2 diabetes mellitus without complications; E11.40 Type 2 diabetes mellitus with diabetic neuropathy, unspecified; Z88.0 Allergy status to penicillin; Z88.1 Allergy status to other antibiotic agents; Z88.8 Allergy status to other drugs, medicaments and biological substances; Z79.899 Other long term (current) drug therapy; Z79.84 Long term (current) use of oral hypoglycemic drugs; Z79.4 Long term (current) use of insulin; Z90.49 Acquired absence of other specified parts of digestive tract; Z91.148 Patient's other noncompliance with medication regimen for other reason
CPT/HCPCS: 36415; 71045; 80053; 82803; 82947; 84484; 85025; 96361; 96374; 96375; 99285-25; A9270-GY; J1885; J2060; J7030

== ENCOUNTER 2024-06-10 17:20 | Emergency (ER) | payer MEDICAID ==
[2024-06-10] MEDS: Aspirin 81 MG Tab.Chew ONE (17:30)
[2024-06-10] MEDS: Nitroglycerin 0.4 MG Tab.SL ONE (17:31)
[2024-06-10] MEDS: Sodium Chloride 0.9% 1,000 ML IV ONE (17:40)
[2024-06-10] MEDS: Sodium Chloride 0.9% 1,000 ML ONE (17:41)
[2024-06-10 17:43] LABS: BASOPHILS ABSOLUTE AUTO 0.04 10^3/uL (0.00-0.10); BASOPHILS PERCENT AUTO 0.6 % (0.0-1.0); EOSINOPHILS ABSOLUTE AUTO 0.22 10^3/uL (0.10-0.30); EOSINOPHILS PERCENT AUTO 3.1 % (1.0-3.0); HEMOGLOBIN 14.2 g/dL (12.0-16.0); IMMATURE GRAN ABSOLUTE AUTO 0.05 10^3/uL (0.00-0.04); IMMATURE GRAN PERCENT AUTO 0.7 % (0.0-0.4); LYMPHOCYTES PERCENT AUTO 32.3 % (20.0-40.0); MEAN CORPUSCULAR HEMOGLOBIN 29.2 pg (27.0-31.0); MEAN CORPUSCULAR HGB CONC 34.6 g/dL (32.0-36.0); MEAN CORPUSCULAR VOLUME 84.4 fL (82.0-92.0); MEAN PLATELET VOLUME 10.8 fL (7.4-10.4); MONOCYTES ABSOLUTE AUTO 0.53 10^3/uL (0.10-0.80); MONOCYTES PERCENT AUTO 7.4 % (2.0-8.0); NEUTROPHILS ABSOLUTE AUTO 3.99 10^3/uL (2.50-7.00); NEUTROPHILS PERCENT AUTO 55.9 % (50.0-70.0); PLATELET COUNT,PLT 249 10^3/uL (150-400); RED BLOOD CELL COUNT 4.86 10^6/uL (3.80-5.50); RED CELL DISTRIBUTION WIDTH 12.9 % (11.5-14.5); WHITE BLOOD CELL COUNT,WBC 7.13 10^3/uL (5.00-10.00)
[2024-06-10 17:55] LABS: HEMOGLOBIN A1C 11.9 % (4.3-5.7)
[2024-06-10 18:01] LABS: ALANINE AMINOTRANSFERASE,ALT 40 U/L (14-63); ALBUMIN 3.23 g/dL (3.40-5.00); ALKALINE PHOSPHATASE 143 U/L (46-116); ANION GAP 11.2 mmol/L (5-15); ASPARTATE AMNIOTRANSFERASE,AST 19 U/L (15-37); BLOOD UREA NITROGEN,BUN 19 mg/dL (7-18); CALCIUM 9.3 mg/dL (8.7-10.3); CARBON DIOXIDE,CO2 27.6 mmol/L (21.0-32.0); CHLORIDE,CL 99 mmol/L (98-107); CREATININE 0.56 mg/dL (0.51-1.17); EST CRCL DRUG DOSING (CG) 88.25 mL/min; GLUCOSE RANDOM 368 mg/dL (70-140); POTASSIUM,K 3.8 mmol/L (3.5-5.1); PROTEIN TOTAL,TP 7.1 g/dL (6.4-8.2); SODIUM,NA 134 mmol/L (136-145)
[2024-06-10 18:02] LABS: ESTIMATED GFR 113 mL/min (>=60)
[2024-06-10 18:04] LABS: B-TYPE NATRIURETIC PEPTIDE,BNP 9 pg/mL (0-100)
[2024-06-10 18:32] LABS: APPEARANCE,URINE SLIGHTLY CLOUDY (CLEAR); BILIRUBIN,URINE NEGATIVE (NEGATIVE); COLOR,URINE YELLOW (YELLOW); GLUCOSE,URINE >=1000 mg/dL (NEGATIVE); KETONES,URINE TRACE mg/dL (NEGATIVE); LEUKOCYTE ESTERASE,URINE NEGATIVE (NEGATIVE); NITRITE,URINE NEGATIVE (NEGATIVE); OCCULT BLOOD,URINE TRACE-INTACT (NEGATIVE); PH,URINE 5.5 (5.0-9.0); PROTEIN,URINE 100 mg/dL (NEGATIVE); UROBILINOGEN,URINE 0.2 E.U./dL (0.2-1.0)
[2024-06-10 18:33] LABS: BACTERIA,URINE RARE /HPF (NONE TO FEW); EPITHELIAL CELLS,URINE FEW /LPF; RBC,URINE 0-5 /HPF (0-5)
[2024-06-10] MEDS: Morphine 2 MG/ML SYRINGE IVPUSH ONE (18:38)
== END 2024-06-10 19:14 | disposition home or self-care (01) ==
LOC: KA.ED 17:20
DX: M25.512 Pain in left shoulder (principal); E86.0 Dehydration; R00.0 Tachycardia, unspecified; Z91.148 Patient's other noncompliance with medication regimen for other reason; E11.65 Type 2 diabetes mellitus with hyperglycemia; I10 Essential (primary) hypertension; E78.00 Pure hypercholesterolemia, unspecified; Z88.0 Allergy status to penicillin; Z88.1 Allergy status to other antibiotic agents; Z79.899 Other long term (current) drug therapy; Z79.84 Long term (current) use of oral hypoglycemic drugs; Z79.4 Long term (current) use of insulin
CPT/HCPCS: 71045; 80053; 81001; 83036; 83880; 84484; 85025; 93010; 96361; 96374; 99284; 99285-25; A9270-GY; J2270; J7030

== ENCOUNTER 2024-11-28 07:35 | Emergency (ER) | payer MEDICAID ==
[2024-11-28] MEDS: Sodium Chloride 0.9% 10 ML Syringe FLUSH PRN (09:04)
[2024-11-28 09:09] LABS: BASOPHILS ABSOLUTE AUTO 0.04 10^3/uL (0.00-0.10); BASOPHILS PERCENT AUTO 0.5 % (0.0-1.0); EOSINOPHILS ABSOLUTE AUTO 0.29 10^3/uL (0.10-0.30); EOSINOPHILS PERCENT AUTO 3.3 % (1.0-3.0); IMMATURE GRAN ABSOLUTE AUTO 0.08 10^3/uL (0.00-0.04); IMMATURE GRAN PERCENT AUTO 0.9 % (0.0-0.4); LYMPHOCYTES ABSOLUTE AUTO 2.94 10^3/uL (1.00-4.00); LYMPHOCYTES PERCENT AUTO 33.7 % (20.0-40.0); MEAN PLATELET VOLUME 11.3 fL (7.4-10.4); MONOCYTES ABSOLUTE AUTO 0.53 10^3/uL (0.10-0.80); MONOCYTES PERCENT AUTO 6.1 % (2.0-8.0); NEUTROPHILS ABSOLUTE AUTO 4.85 10^3/uL (2.50-7.00); NEUTROPHILS PERCENT AUTO 55.5 % (50.0-70.0); PLATELET COUNT,PLT 221 10^3/uL (150-400); RED BLOOD CELL COUNT 5.01 10^6/uL (3.80-5.50); RED CELL DISTRIBUTION WIDTH 12.8 % (11.5-14.5); WHITE BLOOD CELL COUNT,WBC 8.73 10^3/uL (5.00-10.00)
[2024-11-28 09:12] LABS: APPEARANCE,URINE CLEAR (CLEAR); GLUCOSE,URINE 500 mg/dL (NEGATIVE); OCCULT BLOOD,URINE TRACE-INTACT (NEGATIVE)
[2024-11-28 09:20] LABS: EPITHELIAL CELLS,URINE FEW /LPF; SQUAMOUS EPITHELIAL CELLS,UR FEW /HPF (NOT SEEN)
[2024-11-28 09:29] LABS: ALANINE AMINOTRANSFERASE,ALT 29.0 U/L (14-63); ASPARTATE AMNIOTRANSFERASE,AST 17.0 U/L (15-37); BILIRUBIN TOTAL 1.1 mg/dL (0.2-1.0); BLOOD UREA NITROGEN,BUN 26.0 mg/dL (7-18); CARBON DIOXIDE,CO2 26.4 mmol/L (21.0-32.0); CHLORIDE,CL 99.0 mmol/L (98-107); CREATININE 0.54 mg/dL (0.51-1.17); EST CRCL DRUG DOSING (CG) 113.4 mL/min; POTASSIUM,K 4.7 mmol/L (3.5-5.1); PROTEIN TOTAL,TP 7.4 g/dL (6.4-8.2); SODIUM,NA 135.0 mmol/L (136-145)
[2024-11-28 09:37] LABS: ESTIMATED GFR 113.0 mL/min (>=60); GLUCOSE RANDOM 402.0 mg/dL (70-140)
[2024-11-28] MEDS ORDERED: 50% Dextrose in Water 50 ML Syringe IVPUSH PRN (10:23)
[2024-11-28] MEDS ORDERED: Glucose Gel 15 GM in 37.5 GM Tube PO PRN (10:23)
[2024-11-28] MEDS: Insulin Regular, Human 100 Units/ML 10 ML Vial SUBCUT ONE (10:32)
[2024-11-28 11:15] VITALS: PULSE 77
[2024-11-28 11:16] VITALS: BP 136/82
== END 2024-11-28 12:48 | disposition home or self-care (01) ==
LOC: KA.ED 07:35
DX: M25.512 Pain in left shoulder (principal); G89.29 Other chronic pain; E11.40 Type 2 diabetes mellitus with diabetic neuropathy, unspecified; I10 Essential (primary) hypertension; E66.9 Obesity, unspecified; J45.909 Unspecified asthma, uncomplicated; K21.9 Gastro-esophageal reflux disease without esophagitis; Z79.4 Long term (current) use of insulin; M19.90 Unspecified osteoarthritis, unspecified site; Z79.899 Other long term (current) drug therapy; Z88.1 Allergy status to other antibiotic agents; Z88.0 Allergy status to penicillin; Z88.8 Allergy status to other drugs, medicaments and biological substances; Z90.49 Acquired absence of other specified parts of digestive tract; Z90.710 Acquired absence of both cervix and uterus; Z68.28 Body mass index [BMI] 28.0-28.9, adult
CPT/HCPCS: 36415; 80053; 81001; 82947; 85025; 96360; 99283-25; A9270-GY; J7030

== ENCOUNTER 2025-01-01 17:11 | Emergency (ER) | payer MEDICAID ==
[2025-01-01 17:51] LABS: BASOPHILS ABSOLUTE AUTO 0.03 10^3/uL (0.00-0.10); BASOPHILS PERCENT AUTO 0.5 % (0.0-1.0); EOSINOPHILS ABSOLUTE AUTO 0.18 10^3/uL (0.10-0.30); EOSINOPHILS PERCENT AUTO 3.1 % (1.0-3.0); IMMATURE GRAN ABSOLUTE AUTO 0.06 10^3/uL (0.00-0.04); IMMATURE GRAN PERCENT AUTO 1.0 % (0.0-0.4); LYMPHOCYTES ABSOLUTE AUTO 1.90 10^3/uL (1.00-4.00); LYMPHOCYTES PERCENT AUTO 33.0 % (20.0-40.0); MEAN PLATELET VOLUME 10.6 fL (7.4-10.4); MONOCYTES ABSOLUTE AUTO 0.51 10^3/uL (0.10-0.80); MONOCYTES PERCENT AUTO 8.9 % (2.0-8.0); NEUTROPHILS ABSOLUTE AUTO 3.08 10^3/uL (2.50-7.00); NEUTROPHILS PERCENT AUTO 53.5 % (50.0-70.0); PLATELET COUNT,PLT 230 10^3/uL (150-400); RED BLOOD CELL COUNT 4.68 10^6/uL (3.80-5.50); RED CELL DISTRIBUTION WIDTH 13.0 % (11.5-14.5); WHITE BLOOD CELL COUNT,WBC 5.76 10^3/uL (5.00-10.00)
[2025-01-01 18:10] LABS: ALANINE AMINOTRANSFERASE,ALT 91 U/L (14-63); ASPARTATE AMNIOTRANSFERASE,AST 34 U/L (15-37); BILIRUBIN TOTAL 0.8 mg/dL (0.2-1.0); BLOOD UREA NITROGEN,BUN 31 mg/dL (7-18); CARBON DIOXIDE,CO2 25.5 mmol/L (21.0-32.0); CHLORIDE,CL 97 mmol/L (98-107); CREATININE 0.62 mg/dL (0.51-1.17); POTASSIUM,K 4.7 mmol/L (3.5-5.1); PROTEIN TOTAL,TP 7.3 g/dL (6.4-8.2); SODIUM,NA 133 mmol/L (136-145)
[2025-01-01 18:12] LABS: B-TYPE NATRIURETIC PEPTIDE,BNP 10 pg/mL (0-100); ESTIMATED GFR 109 mL/min (>=60); GLUCOSE RANDOM 470 mg/dL (70-140)
[2025-01-01 18:40] LABS: APPEARANCE,URINE CLEAR (CLEAR); GLUCOSE,URINE >=1000 mg/dL (NEGATIVE); OCCULT BLOOD,URINE TRACE-INTACT (NEGATIVE)
[2025-01-01 18:41] LABS: EPITHELIAL CELLS,URINE RARE /LPF
[2025-01-01 19:35] VITALS: BP 160/94; PULSE 82
== END 2025-01-01 18:45 | disposition left against medical advice (07) ==
LOC: KA.ED 17:11
DX: G89.29 Other chronic pain (principal); M25.512 Pain in left shoulder; E10.65 Type 1 diabetes mellitus with hyperglycemia; E86.0 Dehydration; Z79.4 Long term (current) use of insulin; Z91.199 Patient's noncompliance with other medical treatment and regimen due to unspecified reason; I10 Essential (primary) hypertension; E78.00 Pure hypercholesterolemia, unspecified; K21.9 Gastro-esophageal reflux disease without esophagitis; E66.9 Obesity, unspecified; Z88.0 Allergy status to penicillin; Z88.1 Allergy status to other antibiotic agents; Z79.899 Other long term (current) drug therapy; Z90.49 Acquired absence of other specified parts of digestive tract; Z90.710 Acquired absence of both cervix and uterus; Z68.29 Body mass index [BMI] 29.0-29.9, adult
CPT/HCPCS: 36415; 80053; 81001; 82947; 83605; 83880; 84484; 85025; 87428-QW; 96360; 99285-25; J7030; Q3014